=== PATIENT | female | born 1985 | race Two or more races ===

== ENCOUNTER 2024-01-06 16:15 | Emergency (ER) | payer OTHER ==
[~2024-01-06] VITALS: Ht 160 cm; Wt 77.3 kg
[2024-01-06 16:18] VITALS: BP 162/103; PULSE 104; RESP 18; TEMP 98.7
[2024-01-06 17:54] LABS: BASOPHILS % (AUTO) 0.5 % (0.0-2.0); EOSINOPHILS % (AUTO) 2.3 % (1.0-6.0); HEMATOCRIT 30.7 % (36-46); HEMOGLOBIN 9.8 g/dL (12.0-16.0); LYMPHOCYTES # (AUTO) 2.5 K/uL (1.0-4.8); LYMPHOCYTES % (AUTO) 30.9 % (22.0-44.0); MEAN CORPUSCULAR HEMOGLOBIN 22.4 pg (26.0-34.0); MEAN CORPUSCULAR HGB CONC 31.8 G/dL (31.0-37.0); MEAN CORPUSCULAR VOLUME 70 fL (80-100); MONOCYTES # (AUTO) 0.6 K/uL (0.1-1.0); MONOCYTES % (AUTO) 7.2 % (2.0-9.0); NEUTROPHILS # (AUTO) 4.8 K/uL (1.8-7.7); NEUTROPHILS % (AUTO) 59.1 % (40.0-70.0); PLATELET COUNT (AUTO) 211 K/uL (150-450); RED BLOOD CELL COUNT(AUTO) 4.36 MIL/uL (4.00-5.20); RED CELL DISTRIBUTION WIDTH 18.6 % (11.5-14.5); WHITE BLOOD COUNT (AUTO) 8.2 K/uL (4.5-11.0)
[2024-01-06] MEDS: ACETAMINOPHEN 500 MG TABLET PO ONE (17:54)
[2024-01-06 17:57] LABS: CREATININE 1.12 mg/dL (0.60-1.30); POTASSIUM 3.4 mmol/L (3.5-5.1)
[2024-01-06 18:22] LABS: RBC MORPHOLOGY COMMENT ABNORMAL RBC MORPH
[2024-01-06] MEDS ORDERED: ACET-3385 PO (19:43)
== END 2024-01-06 19:53 | disposition home or self-care (01) ==
LOC: EMS 16:17
DX: M79.661 Pain in right lower leg (principal); M79.662 Pain in left lower leg
CPT/HCPCS: 80048; 82550; 84703; 85025; 93970; 99284

== ENCOUNTER 2024-06-28 15:59 | Emergency (ER) | payer OTHER ==
[~2024-06-28] VITALS: Ht 160 cm; Wt 78.2 kg
[~2024-06-28 15:59] MED LIST: ACET-3385 PO
[2024-06-28] MEDS ORDERED: HYDR12.56 PO (16:03)
[2024-06-28] MEDS ORDERED: LOSA100T59 PO (16:03)
[2024-06-28] MEDS ORDERED: AMLO10TA55 PO (16:03)
[2024-06-28 16:04] VITALS: TEMP 99
[2024-06-28] MEDS: MORPHINE SULFATE 2 MG/ML SYRINGE IVP ONE (16:57)
[2024-06-28 17:07] LABS: BASOPHILS % (AUTO) 0.7 % (0.0-2.0); EOSINOPHILS % (AUTO) 3.2 % (1.0-6.0); HEMATOCRIT 32.9 % (36-46); HEMOGLOBIN 10.3 g/dL (12.0-16.0); LYMPHOCYTES # (AUTO) 2.8 K/uL (1.0-4.8); LYMPHOCYTES % (AUTO) 29.3 % (22.0-44.0); MEAN CORPUSCULAR HEMOGLOBIN 21.3 pg (26.0-34.0); MEAN CORPUSCULAR HGB CONC 31.3 G/dL (31.0-37.0); MEAN CORPUSCULAR VOLUME 68 fL (80-100); MONOCYTES # (AUTO) 0.5 K/uL (0.1-1.0); MONOCYTES % (AUTO) 5.4 % (2.0-9.0); NEUTROPHILS # (AUTO) 5.8 K/uL (1.8-7.7); NEUTROPHILS % (AUTO) 61.4 % (40.0-70.0); PLATELET COUNT (AUTO) 220 K/uL (150-450); RED BLOOD CELL COUNT(AUTO) 4.84 MIL/uL (4.00-5.20); RED CELL DISTRIBUTION WIDTH 22.6 % (11.5-14.5); WHITE BLOOD COUNT (AUTO) 9.5 K/uL (4.5-11.0)
[2024-06-28 17:20] LABS: RBC MORPHOLOGY COMMENT ABNORMAL RBC MORPH
[2024-06-28 17:24] LABS: ANION GAP 6 mmol/L (8-16); CALCIUM, TOTAL 8.4 mg/dL (8.8-10.5); CARBON DIOXIDE 26 mmol/L (22-29); CHLORIDE 103 mmol/L (98-107); CREATININE 1.07 mg/dL (0.60-1.30); GLOMERULAR FILTR. RATE CALC 57 mL/min (>60); GLUCOSE,RANDOM 87 mg/dL (70-110); POTASSIUM 3.6 mmol/L (3.5-5.1); SODIUM SERUM 135 mmol/L (136-145); UREA NITROGEN, BLOOD 24 mg/dL (7-18)
[2024-06-28 17:35] LABS: ALANINE AMINOTRANSFERASE 15 U/L (12-78); ALKALINE PHOSPHATASE 70 U/L (46-116); ASPARTATE AMINOTRANSFERASE 22 U/L (15-37); BILIRUBIN,TOTAL 0.2 mg/dL (0.1-1.0); HCG,QUANTITATIVE < 1 mIU/mL (0-6); LIPASE 51 U/L (16-77); TOTAL PROTEIN, SERUM 7.5 g/dL (6.4-8.2)
[2024-06-28 17:43] LABS: APPEARANCE,URINE CLEAR (CLEAR); BILIRUBIN,URINE NEGATIVE (NEGATIVE); COLOR,URINE LIGHT YELLOW (YELLOW); GLUCOSE, URINE (UA) NEGATIVE (NEGATIVE); KETONES,URINE NEGATIVE (NEGATIVE); LEUKOCYTE ESTERASE ,URINE NEGATIVE (NEGATIVE); NITRATE,URINE NEGATIVE (NEGATIVE); OCCULT BLOOD,URINE TRACE (NEGATIVE); PH,URINE 5.5 (5.0-8.0); PROTEIN,URINE NEGATIVE (NEGATIVE); SPECIFIC GRAVITIY, URINE 1.011 (1.003-1.030); UROBILINOGEN,URINE <=1.0 mg/dL (<=1.0)
[2024-06-28 17:47] LABS: BILIRUBIN,DIRECT < 0.05 mg/dL (0.00-0.20)
[2024-06-28 17:50] LABS: BACTERIA,URINE Rare /HPF (None Seen); SQUAMOUS EPITHELIAL CELL,UR Few /LPF (None Seen); WBC,URINE 0-2 /HPF (0-5)
[2024-06-28 19:05] VITALS: BP 161/65; PULSE 73; RESP 16; O2SAT 99
[2024-06-28] MEDS ORDERED: POLY119P3 PO (22:01)
[2024-06-28] MEDS: KETOROLAC TROMETHAMINE 30 MG/ML VIAL IVP ONE (22:44)
== END 2024-06-28 23:06 | disposition home or self-care (01) ==
LOC: EMS 15:59
DX: N83.201 Unspecified ovarian cyst, right side (principal); R10.12 Left upper quadrant pain; I10 Essential (primary) hypertension; E03.9 Hypothyroidism, unspecified; Z98.84 Bariatric surgery status; Z79.899 Other long term (current) drug therapy
CPT/HCPCS: 99285; 74176; 96374; 76856; 96375; 80048; 80076; 81001; 83690; 84702; 85025; 36415; J1885; J2270

== ENCOUNTER 2024-10-18 14:10 | Emergency (ER) | payer OTHER ==
[~2024-10-18] VITALS: Ht 160 cm; Wt 76.8 kg
[~2024-10-18 14:10] MED LIST changes: -ACET-3385 PO; +AMLO10TA55 PO; +HYDR12.56 PO; +LOSA100T59 PO; +POLY119P3 PO
[2024-10-18 15:00] VITALS: TEMP 97.4
[2024-10-18 15:25] LABS: BASOPHILS % (AUTO) 0.4 % (0.0-2.0); EOSINOPHILS % (AUTO) 2.2 % (1.0-6.0); HEMATOCRIT 33.8 % (36-46); HEMOGLOBIN 10.8 g/dL (12.0-16.0); LYMPHOCYTES # (AUTO) 2.7 K/uL (1.0-4.8); LYMPHOCYTES % (AUTO) 28.9 % (22.0-44.0); MEAN CORPUSCULAR HEMOGLOBIN 22.4 pg (26.0-34.0); MEAN CORPUSCULAR HGB CONC 31.8 G/dL (31.0-37.0); MEAN CORPUSCULAR VOLUME 70 fL (80-100); MONOCYTES # (AUTO) 0.5 K/uL (0.1-1.0); MONOCYTES % (AUTO) 5.6 % (2.0-9.0); NEUTROPHILS # (AUTO) 5.9 K/uL (1.8-7.7); NEUTROPHILS % (AUTO) 62.9 % (40.0-70.0); PLATELET COUNT (AUTO) 241 K/uL (150-450); RED BLOOD CELL COUNT(AUTO) 4.81 MIL/uL (4.00-5.20); RED CELL DISTRIBUTION WIDTH 20.6 % (11.5-14.5); WHITE BLOOD COUNT (AUTO) 9.4 K/uL (4.5-11.0)
[2024-10-18] MEDS: HydrALAZINE HCL 20 MG/ML VIAL IVP ONE ×3 (15:26→17:17)
[2024-10-18 15:27] LABS: APPEARANCE,URINE CLEAR (CLEAR); BILIRUBIN,URINE NEGATIVE (NEGATIVE); COLOR,URINE LIGHT YELLOW (YELLOW); GLUCOSE, URINE (UA) NEGATIVE (NEGATIVE); KETONES,URINE NEGATIVE (NEGATIVE); LEUKOCYTE ESTERASE ,URINE TRACE (NEGATIVE); NITRATE,URINE NEGATIVE (NEGATIVE); OCCULT BLOOD,URINE TRACE (NEGATIVE); PH,URINE 5.5 (5.0-8.0); PROTEIN,URINE 30-70 mg/dL (NEGATIVE); SPECIFIC GRAVITIY, URINE 1.013 (1.003-1.030); UROBILINOGEN,URINE <=1.0 mg/dL (<=1.0)
[2024-10-18] MEDS ORDERED: HYDR12.54 PO (15:32)
[2024-10-18 15:34] LABS: ANION GAP 10 mmol/L (8-16); CALCIUM, TOTAL 8.8 mg/dL (8.8-10.5); CARBON DIOXIDE 25 mmol/L (22-29); CHLORIDE 103 mmol/L (98-107); CREATININE 0.95 mg/dL (0.60-1.30); GLOMERULAR FILTR. RATE CALC > 60 mL/min (>60); GLUCOSE,RANDOM 83 mg/dL (70-110); LIPASE 55 U/L (16-77); POTASSIUM 3.4 mmol/L (3.5-5.1); SODIUM SERUM 138 mmol/L (136-145)
[2024-10-18 15:39] LABS: BACTERIA,URINE Few /HPF (None Seen); SQUAMOUS EPITHELIAL CELL,UR Few /LPF (None Seen)
[2024-10-18 15:41] LABS: B-TYPE NATRIURETIC PEPTIDE 86 pg/mL (0-100)
[2024-10-18 15:46] LABS: ALBUMIN 3.3 g/dL (3.4-5.0); BILIRUBIN,DIRECT 0.1 mg/dL (0.00-0.20); BILIRUBIN,TOTAL 0.2 mg/dL (0.1-1.0); RBC MORPHOLOGY COMMENT ABNORMAL RBC MORPH; TOTAL PROTEIN, SERUM 8.4 g/dL (6.4-8.2)
[2024-10-18 15:47] LABS: TROPONIN I-HIGH SENSITIVITY 7 ng/L (<51); URIC ACID 3.4 mg/dL (2.6-7.2)
[2024-10-18 15:58] LABS: LACTATE DEHYDROGENASE 205 U/L (81-234)
[2024-10-18] MEDS ORDERED: DOXYLAMINE SUCCINATE 25 MG TABLET PO ONE (16:00)
[2024-10-18] MEDS ORDERED: PYRIDOXINE HCL 50 MG TABLET PO ONE (16:00)
[2024-10-18 16:07] LABS: PROTHROMBIN TIME 9.9 SEC (9.4-11.6)
[2024-10-18 16:14] LABS: HCG,QUANTITATIVE 7461 mIU/mL (0-6); UREA NITROGEN, BLOOD 17 mg/dL (7-18)
[2024-10-18] MEDS: ACETAMINOPHEN 500 MG TABLET PO ONE (16:20)
[2024-10-18] MEDS: CEPHALEXIN MONOHYDRATE 500 MG CAPSULE PO ONE (16:34)
[2024-10-18 20:48] VITALS: BP 133/63; PULSE 83; RESP 15; O2SAT 98
== END 2024-10-18 22:30 | disposition short-term general hospital (02) ==
LOC: EMS 14:13
DX: O14.90 Unspecified pre-eclampsia, unspecified trimester (principal); O26.891 Other specified pregnancy related conditions, first trimester; R10.2 Pelvic and perineal pain; R82.71 Bacteriuria; E03.9 Hypothyroidism, unspecified; Z79.899 Other long term (current) drug therapy; Z3A.01 Less than 8 weeks gestation of pregnancy
CPT/HCPCS: 99285; 96374; 76801; 80048; 80076; 81001; 83615; 83690; 83735; 83880; 84484; 84550; 84702; 85025; 85610; 85730; 86850; 86900; 86901; 36415; 93005; 96376; J0360